=== PATIENT | male | born 1970 | race Hispanic/Latino ===

== ENCOUNTER 2018-01-24 12:24 | Emergency (ER) | payer OTHER, SELFPAY ==
[2018-01-24 13:18] LABS: Absolute Lymphocytes (CBC) 3.4 K/uL (0.7-4.9); Absolute Neutrophil 10.5 K/uL (1.8-8.0); Basophils % 0.4 % (0-1.3); Eosinophils % 0.3 % (0-4.4); Lymphocytes % 22.6 % (15.3-44.8); MCH 31.8 pg (27.0-35.0); MCV 93.4 fL (80-100); MPV 7.8 fL (7.6-11.3); Monocytes % 6.5 % (3.3-12.3); Protime INR 1.17; RBC Red Blood Cell Count 1.81 M/uL (4.33-5.43)
[2018-01-24 13:25] LABS: Hematocrit 16.9 % (39.6-49.0)
[2018-01-24 13:30] LABS: ALT/SGPT 22 U/L (12-78); AST/SGOT 17 U/L (15-37); Albumin 2.9 g/dL (3.4-5.0); Alkaline Phosphatase 51 U/L (45-117); BUN Blood Urea Nitrogen 21 mg/dL (7-18); Bicarbonate 24 mmol/L (21-32); Bilirubin Direct < 0.1 mg/dL (0-0.2); Bilirubin Total 0.1 mg/dL (0.2-1.0); Glucose Level 132 mg/dL (74-106); Lipase 92 U/L (73-393); Magnesium 2.4 mg/dL (1.8-2.4); NT PRO-BNP 58 pg/mL (<125); Potassium 4.1 mmol/L (3.5-5.1); Protein, Total 5.9 g/dL (6.4-8.2); Sodium Level 137 mmol/L (136-145); Troponin (Emerg Dept Use Only) 0.02 ng/mL (0.0-0.045)
[2018-01-24] MEDS ORDERED: OCTREOTIDE ACETATE 100 MCG/ML ONE (13:47)
[2018-01-24] MEDS ORDERED: PANTOPRAZOLE 40 MG INJ ONE (13:47)
[2018-01-24] MEDS ORDERED: NA CHLORIDE 0.9% 1,000 ML ONE (13:47)
[2018-01-24] MEDS ORDERED: ONDANSETRON 4 MG/2 ML VIAL ONE (13:47)
[2018-01-24 13:58] LABS: Anisocytosis SLIGHT; Blood Morphology Comment NOTED (NOT SEEN); Macrocytosis SLIGHT; Platelet Estimate ADEQ; Platelets, Giant FEW; Polychromasia 1+
[2018-01-24] MEDS ORDERED: OCTREOTIDE 500 MCG in NA CHLORIDE 0.9% 500 ML IV SCH (14:00)
[2018-01-24] MEDS ORDERED: PANTOPRAZOLE INJ 80 MG in NA CHLORIDE 0.9% 250 ML IV ONE (14:00)
--- NOTE | 2018-01-24 14:00 | RAD REPORT ---
EXAM DESCRIPTION: Leeanna Single View01/24/2018 1:50 pm CLINICAL HISTORY: Chest pain COMPARISON: none FINDINGS: The lungs appear clear of acute infiltrate. The heart is normal size IMPRESSION: No acute abnormalities displayed
--- NOTE | 2018-01-24 14:03 | RAD REPORT ---
EXAM DESCRIPTION: CT - Head Brain Wo Cont - 01/24/2018 1:43 pm CLINICAL HISTORY: Syncope COMPARISON: None. TECHNIQUE: Computed axial tomography of the head was obtained. IV contrast was not requested. All CT scans are performed using dose optimization technique as appropriate and may include automated exposure control or mA/KV adjustment according to patient size. FINDINGS: Left posterior scalp swelling is seen without an underlying skull fracture. An intracranial bleed is not seen . The ventricles are normal in caliber. No extra-axial fluid collection is noted. Fluid within the sinuses/ mastoids is not seen. IMPRESSION: No acute intracranial abnormality is seen. If patient's symptoms persist MRI of the bra in would be recommended.
--- NOTE | 2018-01-24 14:12 | RAD REPORT ---
EXAM DESCRIPTION: CT - Abdomen Pelvis W Contrast - 01/24/2018 1:50 pm CLINICAL HISTORY: Abdominal pain/vomiting COMPARISON: none. TECHNIQUE: Computed axial tomography of the abdomen pelvis was obtained. 100 cc Isovue-300 was admin istered intravenously. Oral contrast was not requested which limits evaluation of bowel. All CT scans are performed using dose optimization technique as appropriate and may include automated exposure control or mA/KV adjustment according to patient size. FINDINGS: The liver, spleen, pancreas, adrenal and kidneys appear unremarkable. There is no evidence of diverticulitis. The appendix is normal. Small umbilical hernia is present. Small bilateral inguinal hernias contain fat. The wall of the distal esophagus appears thickened IMPRESSION: Thickening of the wall of the distal esophagus may indicate esophagitis
--- NOTE | 2018-01-24 14:23 | ER ---
Nurse's Notes [facility] Name: Morris Guzmán Age: 47 yrs Sex: Male : 1970 Arrival Date: 01/24/2018 Time: 12:28 Bed 8 Private MD: None, None Diagnosis: Gastrointestinal hemorrhage, unspecified-Upper GI;Hypovolemic shock-Secondary to blood loss Presentation: 01/24 12:35 Presenting complaint: Patient states: Reports black tarry stools for 5 days. Vomiting aj dark red blood last night with syncopal episode, hit forehead on wall and suffered laceration to forehead. Chest pain, headache, that started today. Transition of care: patient was not received from another setting of care. Onset of symptoms was January 19, 2018. Risk Assessment: Do you want to hurt yourself or someone else? Patient reports no desire to harm self or others. Initial Sepsis Screen: Does the patient meet any 2 criteria? No. Patient's initial sepsis screen is negative. Does the patient have a suspected source of infection? No. Patient's initial sepsis screen is negative. Care prior to arrival: None. 12:35 Method Of Arrival: Ambulatory 12:35 Acuity: BENNIE 2 aj Triage Assessment: 12:36 General: Appears in no apparent distress. uncomfortable, Behavior is calm, cooperative, aj appropriate for age. Pain: Complains of pain in face, scalp and chest. Neuro: Level of Consciousness is awake, alert, obeys commands, Oriented to person, place, time, situation, Appropriate for age Reports headache. Cardiovascular: Reports chest pain, lightheadedness, nausea, Capillary refill < 3 seconds in bilateral fingers Patient's skin is warm and dry. Respiratory: Airway is patent Respiratory effort is even, unlabored, Respiratory pattern is regular, symmetrical. GI: Reports upper abdominal pain, bloody stool, nausea, vomiting. Derm: Skin is intact, is healthy with good turgor, Skin is pink, warm \\T\\ dry. normal. Injury Description: Laceration sustained to forehead. Historical: - Allergies: 12:36 No Known Allergies; aj - Home Meds: 12:36 None [Active]; aj - PMHx: 12:36 None; aj - PSHx: 12:36 None; aj - Immunization history:: Adult Immunizations up to date. - Social history:: Smoking status: Patient uses tobacco products, denies chronic smoking, but will smoke occasionally, Patient uses alcohol, on a daily basis. - Ebola Screening: : Patient negative for fever greater than or equal to 101.5 degrees Fahrenheit, and additional compatible Ebola Virus Disease symptoms Patient denies exposure to infectious person Patient denies travel to an Ebola-affected area in the 21 days before illness onset No symptoms or risks identified at this time. Screenin:50 Abuse screen: Denies threats or abuse. Denies injuries from another. Nutritional sg screening: No deficits noted. Tuberculosis screening: No symptoms or risk factors identified. Never had TB. Fall Risk None identified. Assessment: 12:50 General: Appears comfortable, Behavior is calm, cooperative, Reports fatigue for >3 ss days, Denies fever, feeling ill. Pain: Complains of pain in chest and forehead Pain does not radiate. Pain currently is 4 out of 10 on a pain scale. Quality of pain is described as aching, Pain began 2-3 days ago. Is continuous. Neuro: Level of Consciousness is awake, alert, obeys commands, Oriented to person, place, time, situation. Cardiovascular: Rhythm is sinus tachycardia. Respiratory: Reports shortness of breath on exertion since x 3-4 days Airway is patent Respiratory effort is even, unlabored, Respiratory pattern is regular, symmetrical, Breath sounds are clear bilaterally. GI: Abdomen is round non-distended, Bowel sounds present X 4 quads. Abd is soft and non tender X 4 quads. Reports nausea since yesterday, vomiting blood during the night (bright red). GI: Reports black, tarry stool x 4 days. : No signs and/or symptoms were reported regarding the genitourinary system. EENT: Oral mucosa is moist. Derm: Skin is dry, Skin is pale, Skin temperature is cool. Musculoskeletal: Range of motion: intact in all extremities, Swelling absent. Injury Description: Laceration sustained to forehead is 0.5 to 2.5 cm long, not bleeding, was sustained 4-6 hours ago. no active bleeding noted at this time. 13:50 Reassessment: Patient appears in no apparent distress at this time. Patient and/or sg family updated on plan of care and expected duration. Pain level reassessed. Patient is alert, oriented x 3, equal unlabored respirations, skin warm/dry/pink. reports abd burning, feels like "heart burn.". 14:50 Reassessment: Patient appears in no apparent distress at this time. Patient and/or sg family updated on plan of care and expected duration. Pain level reassessed. Patient is alert, oriented x 3, equal unlabored respirations, skin warm/dry/pink. Patient denies pain at this time. 14:55 Reassessment: See Blood transfusion record attached to chart. sg 15:50 Reassessment: Patient appears in no apparent distress at this time. awaiting blood sg transfusion prior to transfer to receiving facility at this time, a number for report, pt updated on POC and need for blood prior to leaving, pt and pt family stated understanding. 16:50 Reassessment: Patient appears in no apparent distress at this time. Patient and/or sg family updated on plan of care and expected duration. Pain level reassessed. Patient is alert, oriented x 3, equal unlabored respirations, skin warm/dry/pink. Patient denies pain at this time. 17:50 Reassessment: Patient appears in no apparent distress at this time. Patient and/or sg family updated on plan of care and expected duration. Pain level reassessed. Patient is alert, oriented x 3, equal unlabored respirations, skin warm/dry/pink. pt reports feeling better, BP remains 90/40 at this time, Daniel SHAFER notified, awaiting transport at this time. 19:37 Reassessment: Patient appears in no apparent distress at this time. No changes from la1 previously documented assessment. Patient and/or family updated on plan of care and expected duration. Pain level reassessed. Vital Signs: 12:38 BP 98 / 73; Pulse 142; Resp 20; Temp 99.4; Pulse Ox 100% on R/A; Weight 89.81 kg; aj Height 5 ft. 8 in. (172.72 cm); 12:50 Pulse 123; ss 15:38 BP 101 / 62; Pulse 115; Resp 19; Pulse Ox 99% on R/A; jb1 15:53 BP 101 / 62; Pulse 112 MON; Resp 17 S; Temp 99.4; Pulse Ox 98% on R/A; Pain 0/10; sg 16:30 BP 100 / 54; Pulse 110; Resp 17; Temp 99.4; Pulse Ox 99% on R/A; Pain 0/10; sg 16:59 BP 89 / 51; Pulse 103; Resp 18; Temp 99.4; Pulse Ox 99% on R/A; Pain 0/10; sg 18:00 BP 81 / 45; Pulse 102; Resp 17; Temp 99.0; Pulse Ox 99% on R/A; Pain 0/10; sg 18:22 BP 83 / 62; Pulse 103; Resp 18 S; Pulse Ox 99% on R/A; sg 18:45 BP 88 / 53; Pulse 100; Resp 18; Pulse Ox 98% on R/A; la1 19:32 BP 88 / 55; Pulse 95; Resp 18; Temp 98.8; Pulse Ox 97% on R/A; la1 20:21 BP 99 / 65; Pulse 94; Resp 16; Temp 98.6(TE); Pulse Ox 98% on R/A; la1 12:38 Body Mass Index 30.11 (89.81 kg, 172.72 cm) aj ED Course: 12:28 Patient arrived in ED. mr 12:28 None, None is Private Physician. mr 12:36 Triage completed. aj 12:38 Arm band placed on left wrist. Patient placed in an exam room. aj 12:40 Umang Smith PA is PHCP. jr8 12:40 Buck Mcgill MD is Attending Physician. jr8 12:46 Inserted saline lock: 20 gauge in right antecubital area, using aseptic technique. ss Blood collected. 12:55 Patient has correct armband on for positive identification. Bed in low position. Call sg light in reach. Side rails up X2. clinical research monitor on. Pulse ox on. NIBP on. 12:59 Patient maintains SpO2 saturation greater than 95% on room air. ss 13:03 EKG done, by technician inventory specialist. reviewed by Buck Mcgill MD. tc 13:05 Inserted saline lock: 20 gauge in left antecubital area, using aseptic technique. jb1 13:10 X-ray completed. Portable x-ray completed in exam room. Patient tolerated procedure ml well. 13:25 Notified Nurse Practitioner and/or Physician Lawnmower Mechanic of a critical lab result(s), hgb ss 5.7, hct 16.9. 13:34 Mark Álvarez, RN is Primary Nurse. sg 13:41 XRAY Chest (1 view) In Process Unspecified. EDMS 13:42 CT completed. Patient tolerated procedure well. Patient moved to CT via stretcher. sj Patient moved back from CT. 13:46 CT Head Brain wo Cont In Process Unspecified. EDMS 13:49 CT Abd/Pelvis - W/Contrast In Process Unspecified. EDMS 13:56 initiated a transfer with Bethany Downs at [facility]. eb 14:[address] Hardy with Umang Shafer for patient transfer consultation. eb 14:45 administrative approval given by Bethany Downs/ Dr. Flores has accepted the patient in eb transfer. Pt going to [address] [place] [address] Bed 3/ Report to be called [phone]. 14:45 Assisted provider with central line placement. Set up central line tray. Triple lumen sg line placed in right femoral. Line placed by Umang SHAFER Placement verified by blood return, Dressed with Tegaderm, Patient tolerated well. Before procedure, did Practitioner(s) obtain informed consent? Yes. Patient \\T\\ family education about procedure, CLABSI prevention and S/S of infection? Yes. Time-out/Briefing performed prior to start of procedure? Yes. Was handwashing/sanitizing done immediately prior to procedure? Yes. Was patient positioned to in a way to prevent air embolism? Yes. Was procedure site sterilized? Yes, with chlorhexidine. Was the site allowed to dry? Yes. Was local anesthetic and/or sedation utilized? Yes. During the procedure, did the Practitioner(s) maintain a sterile field? Yes. Were unused ports clamped during insertion? Yes. Was a 2nd qualified MD obtained after 3 unsuccessful insertion attempts? N/A. Was blood aspirated from each lumen? Yes. After the procedure, did the Practitioner(s) clean the site and apply a sterile dressing? Yes. 14:55 Consent for blood and/or blood product transfusion explained by physician, signed by sg patient. 17:40 transfer transportation to receiving facility. sg 18:40 transfer transportation to receiving facility. sg 20:21 Patient transferred, IV remains in place. la1 Administered Medications: 14:10 Drug: Octreotide 25 mcg Route: IV; Rate: bolus; Site: right antecubital; sg 15:00 Follow up: Response: No adverse reaction; IV Status: Completed infusion sg 14:10 Drug: Zofran 4 mg Route: IVP; Site: right antecubital; sg 19:39 Follow up: Response: No adverse reaction la1 14:15 Drug: NS 0.9% 500 ml Route: IV; Rate: bolus; Site: right antecubital; sg 14:50 Follow up: Response: No adverse reaction; IV Status: Completed infusion sg 14:38 Drug: Lidocaine (1 %) 1 vials {Note: medication administered by PEARL GLUE DRIER/PA student under the sg direction of Daniel MENENDEZ} Volume: 20 ml; Route: Infiltration; 14:40 Drug: ProTONIX 40 mg Route: IVP; Site: left antecubital; sg 15:55 Follow up: Response: No adverse reaction sg 14:40 Drug: ProTONIX 8 mg/hr Route: IV; Rate: 25 ml/hr; Site: left antecubital; sg 19:38 Follow up: IV Status: Infusion continued upon transfer la1 14:40 Drug: Octreotide Infusion (50 mcg/hr) - (Octreotide 500 mcg, NS 0.9% 500 ml) Route: IV; sg Rate: 50 ml/hr; Site: right antecubital; 19:39 Follow up: IV Status: Infusion continued upon transfer la1 15:40 Drug: Rocephin 1 grams Route: IV; Rate: bolus; Site: left antecubital; sg 16:32 Follow up: Response: No adverse reaction; IV Status: Completed infusion sg 15:48 Drug: Tylenol 1000 mg Route: PO; ss 16:32 Follow up: Response: No adverse reaction; Temperature is decreased sg Medication: 19:37 Blood products: PRBCs X 3 units given. la1 Point of Care Testing: Guaiac: 13:45 Stool Guaiac: Positive; Stool Hemoccult Control: Pass; ss Outcome: 14:22 ER care complete, transfer ordered by MD. mendes 16:40 Transferred by ground EMS to [facility]. sg 16:40 Condition: awaiting transport, pt report called to Mague PORTILLO at [facility] [address] 3 20:36 Patient left the ED. la1 Signatures: Dispatcher [employer] EDMS [place] Steven, RN RN sg Myers, Amanda, RN RN aj Rivera, Yecenia Ordonez, Saige Hewitt, Noa Garzach, Airam, LINDSEY RN ss Umang Smith PA PA jr8 Rosita Escamilla, cable engineer outside plant EKG Ttc Toni Belcher RN RN la1 Bethany Elliott Corrections: (The following items were deleted from the chart) 12:38 12:35 Presenting complaint: Patient states: Reports black tarry stools for 5 days. aj Vomiting dark red blood last night. Chest pain, headache, that started today. aj 12:59 12:59 Inserted saline lock: 20 gauge in right antecubital area, using aseptic ss technique. Blood collected. ss
--- NOTE | 2018-01-24 14:23 | EDPHYS ---
Physician Documentation [facility] Name: Morris Guzmán Age: 47 yrs Sex: Male : 1970 Arrival Date: 01/24/2018 Time: 12:28 Bed 8 Private MD: None, None ED Physician Buck Mcgill HPI: 01/24 13:40 This 47 yrs old Male presents to ER via Ambulatory with complaints of jr8 Vomiting, Dizziness. 13:40 The patient presents with abdominal pain in the epigastric area. Onset: The jr8 symptoms/episode began/occurred gradually, 2 day(s) ago. The patient presents to the emergency department vomiting blood, a moderate amount, bright red, in a single episode. Onset: The symptoms/episode began/occurred acutely, yesterday. Associated signs and symptoms: Pertinent positives: syncope, melena . Severity of symptoms: At their worst the symptoms were moderate in the emergency department the symptoms are unchanged. The patient has not experienced similar symptoms in the past. The patient has not recently seen a physician. Patient with longstanding history of alcohol abuse. Stated that he started to not feel well since this past Saturday. Since then has had vomiting and melena in stool. Yesterday vomited blood and had syncopal episode hitting his head. Since then very weak. Patient comes into ED tachycardic, hypotensive, and with low grade fever . Historical: - Allergies: 12:36 No Known Allergies; aj - Home Meds: 12:36 None [Active]; aj - PMHx: 12:36 None; aj - PSHx: 12:36 None; aj - Immunization history:: Adult Immunizations up to date. - Social history:: Smoking status: Patient uses tobacco products, denies chronic smoking, but will smoke occasionally, Patient uses alcohol, on a daily basis. - Ebola Screening: : Patient negative for fever greater than or equal to 101.5 degrees Fahrenheit, and additional compatible Ebola Virus Disease symptoms Patient denies exposure to infectious person Patient denies travel to an Ebola-affected area in the 21 days before illness onset No symptoms or risks identified at this time. ROS: 13:40 Eyes: Negative for injury, pain, redness, and discharge, ENT: Negative for injury, jr8 pain, and discharge, Neck: Negative for injury, pain, and swelling, Cardiovascular: Negative for chest pain, palpitations, and edema, Respiratory: Negative for shortness of breath, cough, wheezing, and pleuritic chest pain, Back: Negative for injury and pain, MS/Extremity: Negative for injury and deformity, Skin: Negative for injury, rash, and discoloration. 13:40 Abdomen/GI: Positive for abdominal pain, nausea and vomiting, hematemesis, black/tarry stool. 13:40 Neuro: Positive for dizziness, syncope. Exam: 13:40 ENT: Nares patent. No nasal discharge, no septal abnormalities noted. Tympanic jr8 membranes are normal and external auditory canals are clear. Oropharynx with no redness, swelling, or masses, exudates, or evidence of obstruction, uvula midline. Mucous membranes moist. Neck: Trachea midline, no thyromegaly or masses palpated, and no cervical lymphadenopathy. Supple, full range of motion without nuchal rigidity, or vertebral point tenderness. No Meningismus. Respiratory: Lungs have equal breath sounds bilaterally, clear to auscultation and percussion. No rales, rhonchi or wheezes noted. No increased work of breathing, no retractions or nasal flaring. Back: No spinal tenderness. No costovertebral tenderness. Full range of motion. MS/ Extremity: Pulses equal, no cyanosis. Neurovascular intact. Full, normal range of motion. Neuro: Awake and alert, GCS 15, oriented to person, place, time, and situation. Cranial nerves II-XII grossly intact. Motor strength 5/5 in all extremities. Sensory grossly intact. Cerebellar exam normal. Normal gait. 13:40 Head/face: Noted is a laceration(s), that is deep, that is linear, 3 cm(s), of the forehead. 13:40 Eyes: Periorbital structures: appear normal, Pupils: equal, round, and reactive to light and accomodation, Extraocular movements: intact throughout, Conjunctiva: pale, bilaterally, Corneas: are normal, Sclera: no appreciated abnormality, Anterior chamber: normal, Lids and lashes: appear normal. 13:40 Cardiovascular: Rate: tachycardic, Rhythm: regular, Pulses: Pulses are 2+ in right radial artery and left radial artery. 13:40 Abdomen/GI: Inspection: abdomen appears normal, Bowel sounds: active, all quadrants, Palpation: soft, in all quadrants, moderate abdominal tenderness, in the epigastric area, right upper quadrant and left upper quadrant, mass, is not appreciated, rebound tenderness, is not appreciated, voluntary guarding, is not appreciated, involuntary guarding, is not appreciated, no appreciated organomegaly, Indicators: McBurney's point is not tender, Farrell's sign is negative, Rovsing's sign is negative, Liver: tenderness, is not appreciated. 13:40 Skin: Appearance: Color: pale. Vital Signs: 12:38 BP 98 / 73; Pulse 142; Resp 20; Temp 99.4; Pulse Ox 100% on R/A; Weight 89.81 kg; aj Height 5 ft. 8 in. (172.72 cm); 12:50 Pulse 123; ss 15:38 BP 101 / 62; Pulse 115; Resp 19; Pulse Ox 99% on R/A; jb1 15:53 BP 101 / 62; Pulse 112 MON; Resp 17 S; Temp 99.4; Pulse Ox 98% on R/A; Pain 0/10; sg 16:30 BP 100 / 54; Pulse 110; Resp 17; Temp 99.4; Pulse Ox 99% on R/A; Pain 0/10; sg 16:59 BP 89 / 51; Pulse 103; Resp 18; Temp 99.4; Pulse Ox 99% on R/A; Pain 0/10; sg 18:00 BP 81 / 45; Pulse 102; Resp 17; Temp 99.0; Pulse Ox 99% on R/A; Pain 0/10; sg 18:22 BP 83 / 62; Pulse 103; Resp 18 S; Pulse Ox 99% on R/A; sg 18:45 BP 88 / 53; Pulse 100; Resp 18; Pulse Ox 98% on R/A; la1 19:32 BP 88 / 55; Pulse 95; Resp 18; Temp 98.8; Pulse Ox 97% on R/A; la1 20:21 BP 99 / 65; Pulse 94; Resp 16; Temp 98.6(TE); Pulse Ox 98% on R/A; la1 12:38 Body Mass Index 30.11 (89.81 kg, 172.72 cm) aj Procedures: 15:35 Central Line: the site was prepped with Betadine, in sterile fashion, a triple lumen jr8 catheter was inserted, in the right femoral vein, in 1 attempts. placement was verified, by blood return, the site was dressed with 4X4s, Tegaderm, using sterile technique, the patient tolerated the procedure, well. Laceration: 15:35 Wound Repair of 5cm ( 2.0in ) subcutaneous laceration to forehead. Irregularly shaped.. jr8 Minimal bleeding noted.. Distal neuro/vascular/tendon intact. Anesthesia: Local anesthetic administered with 8 mls of 1% lidocaine. Wound prep: Extensive cleansing with betadine, Wound irrigation with saline, Wound explored extensively. Skin closed with 8 4-0 Prolene using interrupted sutures and sterile technique. Patient tolerated well. MDM: 12:40 Patient medically screened. jr8 14:20 Data reviewed: vital signs, nurses notes, lab test result(s), EKG, radiologic studies, jr8 CT scan. Data interpreted: Pulse oximetry: on room air is 100 %. Interpretation: normal. Counseling: I had a detailed discussion with the patient and/or guardian regarding: the historical points, exam findings, and any diagnostic results supporting the discharge/admit diagnosis, lab results, radiology results, the need for further work-up and treatment in the hospital. ED course: Discussed case with Dr. Hardy at [facility] ICU. Will accept patient . 15:39 ED course: Discussed with family the need for transfer and details on patients jr8 condition. Family and patient good with plan and transfer . 01/24 12:42 Order name: Basic Metabolic Panel; Complete Time: 13:30 01/24 12:42 Order name: CBC with Diff; Complete Time: 14:16 01/24 12:42 Order name: LFT's; Complete Time: 13:30 01/24 12:42 Order name: Magnesium; Complete Time: 13:30 01/24 12:42 Order name: NT PRO-BNP; Complete Time: 13:30 01/24 12:42 Order name: PT-INR; Complete Time: 13:21 01/24 12:42 Order name: Troponin (emerg Dept Use Only); Complete Time: 13:30 01/24 12:42 Order name: TS 01/24 12:42 Order name: Lipase; Complete Time: 13:31 01/24 12:56 Order name: ETOH Level; Complete Time: 14:16 01/24 13:25 Order name: Occult Blood eb 01/24 13:30 Order name: AMMONIA; Complete Time: 15:01 8 01/24 13:43 Order name: Packed RBC Leukored -1 EDMS 01/24 12:42 Order name: XRAY Chest (1 view); Complete Time: 14:16 8 01/24 12:42 Order name: EKG; Complete Time: 12:43 8 01/24 12:42 Order name: Cardiac monitoring; Complete Time: 12:58 8 01/24 12:56 Order name: CT Head Brain wo Cont; Complete Time: 14:16 8 01/24 12:56 Order name: CT Abd/Pelvis - W/Contrast; Complete Time: 14:16 [facility] 01/24 13:50 Order name: ABO/RH no charge; Complete Time: 14:16 [facility] 01/24 13:56 Order name: Manual Differential; Complete Time: 14:16 [facility] 01/24 12:42 Order name: EKG - Nurse/Tech; Complete Time: 12:58 [facility] 01/24 12:42 Order name: IV Saline Lock; Complete Time: 12:58 8 01/24 12:42 Order name: Labs collected and sent; Complete Time: 12:58 01/24 12:42 Order name: O2 Per Protocol; Complete Time: 12:58 [facility] 01/24 12:42 Order name: O2 Sat Monitoring; Complete Time: 12:58 8 01/24 14:20 Order name: Prolene, Sutures; Complete Time: 14:38 [facility] 01/24 14:20 Order name: Dressing - Wound; Complete Time: 14:38 [facility] 01/24 14:20 Order name: Gloves, Sterile; Complete Time: 14:38 01/24 14:20 Order name: Setup Suture Tray; Complete Time: 14:38 Administered Medications: 14:10 Drug: Octreotide 25 mcg Route: IV; Rate: bolus; Site: right antecubital; sg 15:00 Follow up: Response: No adverse reaction; IV Status: Completed infusion sg 14:10 Drug: Zofran 4 mg Route: IVP; Site: right antecubital; sg 19:39 Follow up: Response: No adverse reaction la1 14:15 Drug: NS 0.9% 500 ml Route: IV; Rate: bolus; Site: right antecubital; sg 14:50 Follow up: Response: No adverse reaction; IV Status: Completed infusion sg 14:38 Drug: Lidocaine (1 %) 1 vials {Note: medication administered by [employer] student under the sg direction of Daniel CULVER.} Volume: 20 ml; Route: Infiltration; 14:40 Drug: ProTONIX 40 mg Route: IVP; Site: left antecubital; sg 15:55 Follow up: Response: No adverse reaction sg 14:40 Drug: ProTONIX 8 mg/hr Route: IV; Rate: 25 ml/hr; Site: left antecubital; sg 19:38 Follow up: IV Status: Infusion continued upon transfer la1 14:40 Drug: Octreotide Infusion (50 mcg/hr) - (Octreotide 500 mcg, NS 0.9% 500 ml) Route: IV; sg Rate: 50 ml/hr; Site: right antecubital; 19:39 Follow up: IV Status: Infusion continued upon transfer la1 15:40 Drug: Rocephin 1 grams Route: IV; Rate: bolus; Site: left antecubital; sg 16:32 Follow up: Response: No adverse reaction; IV Status: Completed infusion sg 15:48 Drug: Tylenol 1000 mg Route: PO; ss 16:32 Follow up: Response: No adverse reaction; Temperature is decreased sg Point of Care Testing: Guaiac: 13:45 Stool Guaiac: Positive; Stool Hemoccult Control: Pass; ss Disposition: 01/24/18 14:[address] [facility]. Diagnosis are Gastrointestinal hemorrhage, unspecified - Upper GI, Hypovolemic shock - Secondary to blood loss. - Reason for transfer: Higher level of care. - Accepting physician is Dr. Hardy . - Condition is Fair. - Problem is new. - Symptoms have improved. Critical care time excluding procedures: 15:38 Critical care time: Bedside Care: 20 minutes, Consultation: 15 minutes, Family jr8 Intervention: 10 minutes. Total time: 45 minutes Addendum: 01/27/2018 09:42 Co-signature as Attending Physician, Buck Mcgill MD I agree with the assessment and c mendoza plan of care. Signatures: Dispatcher [employer] EDMark Hinojosa RN RN sg Myers, Amanda, RN RN aj Anderson, Corey, MD MD cha Smirch, Shelby RN RN Umang Degroot PA PA jr8 Toni Belcher RN RN la1 Corrections: (The following items were deleted from the chart) 01/24 13:43 13:40 This 47 yrs old Male presents to ER via Ambulatory with complaints of jr8 Chest Pain, Vomiting, Dizziness. jr8 13:56 13:27 CBC Smear Scan ordered. EDMS EDMS 20:36 14:22 01/24/2018 14:[address] [facility]. Diagnosis is la1 Gastrointestinal hemorrhage, unspecified - Upper GI; Hypovolemic shock - Secondary to blood loss. Reason for transfer: Higher level of care. Accepting physician is Dr. Hardy . Condition is Fair. Problem is new. Symptoms have improved. jr8
[2018-01-24] MEDS ORDERED: LIDOCAINE 1% W/EPI 1:100,000 MDV 50 ML VIAL ONE (14:38)
[2018-01-24] MEDS ORDERED: LIDOCAINE 1% MPF 30 ML VIAL ONE (14:38)
[2018-01-24] MEDS ORDERED: CEFTRIAXONE/SWI 1gm 1 GM/10 ML SYR ONE (14:53)
[2018-01-24] MEDS ORDERED: NA CHLORIDE 0.9% 250 ML ONE ×2 (14:58→19:10)
[2018-01-24] MEDS ORDERED: ACETAMINOPHEN 500 MG TAB ONE ×3 (15:12→15:47)
--- NOTE | 2018-01-24 18:46 | EKG ---
Test Date: 2018-01-24 Test Time: 12:45:42 [employer] Supervisor: CORAL MEASUREMENT RESULTS: Intervals: Rate: 125 SC: 136 QRSD: 88 QT: 304 QTc: 438 Braxton: P: 37 SC: 136 QRS: 10 T: 25 INTERPRETIVE STATEMENTS: Sinus tachycardia Otherwise normal ECG No previous ECG available for comparison Electronically Signed On 01-24-18 18:44:48 MICROBIOLOGY SUPERVISOR by Shaka Yang
== END 2018-01-24 20:36 | disposition short-term general hospital (02) ==
LOC: ER 12:24
PROC: 0JQ10ZZ Repair Face Subcutaneous Tissue and Fascia, Open Approach (ICD-10-PCS; principal; 2018-01-24)
PROC: 06HM33Z Insertion of Infusion Device into Right Femoral Vein, Percutaneous Approach (ICD-10-PCS; 2018-01-24)
DX: K92.2 Gastrointestinal hemorrhage, unspecified (principal); R57.1 Hypovolemic shock; S01.81XA Laceration without foreign body of other part of head, initial encounter; W19.XXXA Unspecified fall, initial encounter; Y93.9 Activity, unspecified; Y92.9 Unspecified place or not applicable; Z72.0 Tobacco use
CPT/HCPCS: 36415; 36430; 70450; 71045; 74177; 80048; 80076; 80320; 82140; 83690; 83735; 83880; 84484; 85025; 85610; 86850; 86900; 86901; 93005; 99285; C9113; J0696; J2354; J2405; J7030; P9016; Q9967